=== PATIENT | female | born 1985 | race African-American/Black ===

== ENCOUNTER 2018-09-09 21:17 | Emergency (ER) | payer SELFPAY ==
[~2018-09-09] VITALS: Ht 172.7 cm; Wt 108.9 kg
[2018-09-09 22:32] VITALS: BP 111/62
[2018-09-09] MEDS ORDERED: CLON0.5T PO (22:43)
--- NOTE | 2018-09-09 22:46 | PHYS DOC ---
Adult General Chief Complaint Chief Complaint out of medicine HPI HPI 33 years old female presented to the emergency department with a chief complaint of dizziness stated when I feel anxious feeling dizzy I ran out of my Klonopin abdomen here for refill Review of Systems Review of Systems Constitutional: Denies fever or chills [] Eyes: Denies change in visual acuity, redness, or eye pain [] HENT: Denies nasal congestion or sore throat [] Respiratory: Denies cough or shortness of breath [] Cardiovascular: No additional information not addressed in HPI [] GI: Denies abdominal pain, nausea, vomiting, bloody stools or diarrhea [] : Denies dysuria or hematuria [] Musculoskeletal: Denies back pain or joint pain [] Integument: Denies rash or skin lesions [] Neurologic: Denies headache, focal weakness or sensory changes [] Endocrine: Denies polyuria or polydipsia [] All other systems were reviewed and found to be within normal limits, except as documented in this note. Allergies Allergies Allergies Coded Allergies Type Severity Reaction Last Updated Verified No Known Drug Allergies 11/29/13 No Physical Exam Physical Exam Constitutional: Well developed, well nourished, no acute distress, non-toxic appearance. [] HENT: Normocephalic, atraumatic, bilateral external ears normal, oropharynx moist, no oral exudates, nose normal. [] Eyes: PERRLA, EOMI, conjunctiva normal, no discharge. [] Neck: Normal range of motion, no tenderness, supple, no stridor. [] Cardiovascular:Heart rate regular rhythm, no murmur [] Lungs & Thorax: Bilateral breath sounds clear to auscultation [] Abdomen: Bowel sounds normal, soft, no tenderness, no masses, no pulsatile masses. [] Skin: Warm, dry, no erythema, no rash. [] Back: No tenderness, no CVA tenderness. [] Extremities: No tenderness, no cyanosis, no clubbing, ROM intact, no edema. [] Neurologic: Alert and oriented X 3, normal motor function, normal sensory function, no focal deficits noted. [] Psychologic: Affect normal, judgement normal, mood normal. [] Current Patient Data Vital Signs Vital Signs Date Time Temp Pulse Resp B/P (MAP) Pulse Ox O2 Delivery O2 Flow Rate FiO2 09/09/18 21:36 97.8 78 18 99 Room Air EKG EKG [] Radiology/Procedures Radiology/Procedures [] Course & Med Decision Making Course & Med Decision Making Pertinent Labs and Imaging studies reviewed. (See chart for details) [] Final Impression Final Impression [] Problems: (1) Anxiety Dragon Disclaimer Dragon Disclaimer This electronic medical record was generated, in whole or in part, using a voice recognition dictation system. PRANAY HERNANDEZ MD Sep 09, 2018 22:46
== END 2018-09-09 22:52 | disposition home or self-care (01) ==
LOC: ER 21:17
DX: F41.9 Anxiety disorder, unspecified (principal); R42 Dizziness and giddiness
CPT/HCPCS: 99283

== ENCOUNTER 2019-03-16 14:03 | Emergency (ER) | payer SELFPAY ==
[~2019-03-16] VITALS: Ht 172.7 cm; Wt 125.2 kg
[~2019-03-16 14:03] MED LIST: CLON0.5T PO
[2019-03-16] MEDS ORDERED: CYCL-331 PO (14:37)
--- NOTE | 2019-03-16 14:38 | PHYS DOC ---
Past History Past Medical History: Anxiety, Other Past Surgical History: No Surgical History Smoking: Cigarettes, Less than 1pk/day Alcohol Use: Occasionally Drug Use: Marijuana Social History Narrative: last used 3-4 weeks ago Adult General Chief Complaint Chief Complaint: BACK PAIN - NO INJURY HPI HPI patient is a 33-year-old female presents to the emergency department for evaluation of back pain, diffusely. She states she has been having pain on and off for quite a while, but denies any injuries. She denies any numbness, weakness, incontinence, or saddle anesthesia. Movement seems to worsen her pain. She states that she has been holding off going to an ER due to pain, because of her insurance issues, but she states that her pain has gradually worsened over the past week and a half. She has not had any injuries recently. Other than as stated above, there are no alleviating or exacerbating factors to her symptoms. Review of Systems Review of Systems Constitutional: Denies fever or chills [] Eyes: Denies change in visual acuity, redness, or eye pain [] HENT: Denies nasal congestion or sore throat [] Respiratory: Denies cough or shortness of breath [] Cardiovascular: The patient denies any shortness of breath, chest pain, palpitations, or orthopnea [] GI: Denies abdominal pain, nausea, vomiting, bloody stools or diarrhea [] : Denies dysuria or hematuria [] Musculoskeletal: Denies neck pain or joint pain [] Integument: Denies rash or skin lesions [] Neurologic: Denies headache, focal weakness or sensory changes [] Endocrine: Denies polyuria or polydipsia [] All other systems were reviewed and found to be within normal limits, except as documented in this note. Allergies Allergies Allergies Coded Allergies Type Severity Reaction Last Updated Verified No Known Drug Allergies 03/16/19 No Physical Exam Physical Exam PHYSICAL EXAM: CONSTITUTIONAL: Well developed, well nourished HEAD: normocephalic, atraumatic EENT: PERRL, EOMI. Conjunctivae normal color, sclerae non-icteric; moist mucous membranes. NECK: Supple, non-tender; no meningismus. LUNGS: Lungs CTA, breathing even and unlabored. Normal air movement. HEART: Regular rate and rhythm, no murmur CHEST: No deformity; non-tender ABDOMEN: The abdomen is soft, and non-tender, no masses or bruits. EXTREM: Normal ROM; no deformity, no calf tenderness. Normal pulses palpable in all extremities. There is no pedal edema. SKIN: No rash; no diaphoresis NEURO: Alert; normal speech and cognition; CN's grossly intact; strength grossly intact without focal deficit. BACK: No CVA TTP. There is tenderness to palpation diffusely of the paraspinal muscles of the thoracic and lumbar spine bilaterally, without any midline vertebral tenderness to palpation. Current Patient Data Vital Signs Vital Signs Date Time Temp Pulse Resp B/P (MAP) Pulse Ox O2 Delivery O2 Flow Rate FiO2 03/16/19 14:09 97.8 64 18 99 Room Air EKG EKG [] Radiology/Procedures Radiology/Procedures [] Course & Med Decision Making Course & Med Decision Making I discussed home care with the patient, the need for follow-up, and return precautions. Dragon Disclaimer Dragon Disclaimer This electronic medical record was generated, in whole or in part, using a voice recognition dictation system. Departure Departure: Impression: Primary Impression: Back pain Disposition: 01 HOME, SELF-CARE Condition: STABLE Patient Instructions: Back Pain, Adult Additional Instructions: Ibuprofen 400-600 mg every 6 hours may help improve your symptoms. Applying a heating pad to the affected area may help improve your symptoms. The prescribed medications may cause drowsiness-use caution while taking. Scripts Cyclobenzaprine Hcl (CYCLOBENZAPRINE HCL) 10 Mg Tablet 1 TAB PO TID PRN for back pain, #20 TAB Prov: JOEY FREEMAN MD 03/16/19 JOEY FREEMAN MD Mar 16, 2019 14:38
[2019-03-16 14:57] VITALS: BP 125/75
== END 2019-03-16 14:58 | disposition home or self-care (01) ==
LOC: ER 14:03
DX: M54.6 Pain in thoracic spine (principal); M54.5 Low back pain; F41.9 Anxiety disorder, unspecified; F17.210 Nicotine dependence, cigarettes, uncomplicated
CPT/HCPCS: 99283

== ENCOUNTER 2020-10-17 21:55 | Emergency (ER) | payer SELFPAY ==
[~2020-10-17] VITALS: Ht 172.7 cm; Wt 125.2 kg
[2020-10-17 21:55] VITALS: BP 134/75
[~2020-10-17 21:55] MED LIST changes: +CYCL-331 PO
== END 2020-10-17 22:21 | disposition left against medical advice (07) ==
LOC: ER 21:55
DX: S02.5XXA Fracture of tooth (traumatic), initial encounter for closed fracture (principal); Z53.21 Procedure and treatment not carried out due to patient leaving prior to being seen by health care provider; X58.XXXA Exposure to other specified factors, initial encounter; Y93.89 Activity, other specified; Y92.89 Other specified places as the place of occurrence of the external cause; Y99.8 Other external cause status

== ENCOUNTER 2021-05-31 10:20 | Emergency (ER) | payer SELFPAY ==
[~2021-05-31] VITALS: Ht 172.7 cm; Wt 125.2 kg
[~2021-05-31 10:20] MED LIST changes: -CYCL-331 PO; +CYCL10TA19 PO
[2021-05-31 11:14] VITALS: BP 128/59
--- NOTE | 2021-05-31 11:19 | PHYS DOC ---
Past History Past Medical History: Anxiety, Other Past Surgical History: No Surgical History Smoking: Cigarettes, Less than 1pk/day Alcohol Use: Occasionally Drug Use: Marijuana Adult General Chief Complaint Chief Complaint: LOWER EXT PAIN HPI HPI Patient is a 35-year-old female who presents with a chief complaint of left ankle pain after twisting it while walking her dog. States it is about 6 out of 10, dull and achy in nature. States she is able to walk because of discomfort. Did not take any medications. States that she did break her ankle a few years ago and since has been trying to get disability. States she is able to walk but it causes discomfort and request some crutches as she has an appointment today with her primary care physician and disability to discuss disability care. Review of Systems Review of Systems Review of systems otherwise unremarkable except noted in HPI Allergies Allergies Allergies Coded Allergies Type Severity Reaction Last Updated Verified No Known Drug Allergies 03/16/19 No Physical Exam Physical Exam Constitutional: Well developed, well nourished, no acute distress, non-toxic appearance. [] HENT: Normocephalic, atraumatic, Skin: Warm, dry, no erythema, no rash. [] Back: No tenderness, no CVA tenderness. [] Extremities: No tenderness, no cyanosis, no clubbing, ROM intact, no edema. [] Neurologic: Alert and oriented X 3, normal motor function, normal sensory function, no focal deficits noted. [] Psychologic: Affect normal, judgement normal, mood normal. [] EKG EKG [] Radiology/Procedures Radiology/Procedures [] Heart Score C/O Chest Pain: No Risk Factors: Risk Factors: DM, Current or recent (<one month) smoker, HTN, HLP, family hi story of CAD, obesity. Risk Scores: Risk Factors: DM, Current or recent (<one month) smoker, HTN, HLP, family history of CAD, obesity. Course & Med Decision Making Course & Med Decision Making Patient is a 35-year-old female who presents with left ankle pain Vital signs not concerning. Physical exam noted above. Given Tylenol, ibuprofen and ice pack. Given crutches. Given work note per patient's request. Imaging with no acute osseous abnormalities. Discussed symptom management at home. Advised to keep her appointment with primary care physician in the disability office today. Gave return precautions to the ED. Patient grateful, verbalized understanding and agreed with plan of discharge. Dragon Disclaimer Dragon Disclaimer This electronic medical record was generated, in whole or in part, using a voice recognition dictation system. Departure Departure: Impression: Primary Impression: Ankle pain Disposition: HOME / SELF CARE / HOMELESS Condition: GOOD Referrals: PCP,NO (PCP) CAMILA SIMON MD Patient Instructions: Crutch Use, RICE - Routine Care for Injuries Additional Instructions: Thank you for coming into the emergency department today and allowing us to take care of you. Please read the attached information carefully to go back over some of the things we discussed. You can use Tylenol, ibuprofen, ice and Benadryl as needed. Please follow-up with your primary care physician when you can to update on ED visit and set up a follow-up. Please come back to the ED with new or concerning symptoms as we discussed. LELIA TAYLOR MD May 31, 2021 11:19
[2021-05-31] MEDS ORDERED: IBUPROFEN 600 MG TABLET. PO ONE (13:00)
[2021-05-31] MEDS ORDERED: ACETAMINOPHEN 500 MG TABLET PO ONE (13:00)
--- NOTE | 2021-05-31 13:16 | RAD ---
XR EXAM OF ANKLE_LEFT 3V Clinical indications: Reason: fall /pain. Findings: No acute fracture or dislocation or osteolytic process is evident. The mortise ankle joint is intact. Prominent plantar spur of the calcaneus is seen. IMPRESSION: No acute osseous abnormality is evident. Electronically signed by: Anand Bae MD (05/31/2021 1:14 PM) [id number]
== END 2021-05-31 13:06 | disposition home or self-care (01) ==
LOC: ER 10:20
DX: M25.572 Pain in left ankle and joints of left foot (principal); F41.9 Anxiety disorder, unspecified; F17.210 Nicotine dependence, cigarettes, uncomplicated; X50.9XXA Other and unspecified overexertion or strenuous movements or postures, initial encounter; Y93.K1 Activity, walking an animal; Y92.89 Other specified places as the place of occurrence of the external cause; Y99.8 Other external cause status
CPT/HCPCS: 73610; 99283

== ENCOUNTER 2021-06-02 13:44 | Emergency (ER) | payer SELFPAY ==
[~2021-06-02] VITALS: Ht 172.7 cm; Wt 125.2 kg
[2021-06-02 13:50] VITALS: BP 139/80
[2021-06-02] MEDS ORDERED: ALPRAZolam 0.25 MG TABLET PO ONE (15:15)
--- NOTE | 2021-06-02 15:45 | PHYS DOC ---
Past History Past Medical History: Anxiety, Other (ILENE YORK APRN) Past Surgical History: No Surgical History (ILENE YORK APRN) Smoking: Cigarettes, Less than 1pk/day Alcohol Use: Rarely Drug Use: Marijuana (ILENE YORK APRN) General Adult EDM: Chief Complaint: ANXIETY/PANIC ATTACK HPI: HPI: Patient is a 35-year-old female who presents with panic attack. Patient states she has a history of anxiety and panic disorder. Patient's not currently taking any medications. Patient denies SI or HI. Patient states that she was at home getting ready to go to work when all of a sudden she started having a panic attack for an unknown reason. Patient is tearful and anxious. Patient states that she has [facility] in the past and recently made an appointment for next week. (ILENE YORK APRN) Review of Systems: Review of Systems: ROS At least 10 ROS systems have been reviewed and are negative except as documented in the HPI. General: Negative except as outlined in HPI above. Skin: Negative except as outlined in HPI above. HEENT: Negative except as outlined in HPI above. Neck: Negative except as outlined in HPI above. Respiratory: Negative except as outlined in HPI above.. Cardiovascular: Negative except as outlined in HPI above. Abdomen: Negative except as outlined in HPI above. : Negative except as outlined in HPI above. Back/MSK: Negative except as outlined in HPI above. Neuro: Negative except as outlined in HPI above. Psych: Negative except as outlined in HPI above. (ILENE YORK APRN) Current Medications: Current Meds: Current Medications Medications (Trade) Dose Ordered Sig/Arnulfo Start Time Stop Time Status Last Admin Dose Admin Alprazolam (Xanax) 0.5 mg 1X ONCE 06/02/21 15:15 06/02/21 15:16 DC (ILENE YORK APRN) Allergies: Allergies: Allergies Coded Allergies Type Severity Reaction Last Updated Verified No Known Drug Allergies 05/31/21 No (ILENE YORK APRN) Physical Exam: PE: Constitutional: Well developed, well nourished, no acute distress, non-toxic appearance. [] HENT: Normocephalic, atraumatic, bilateral external ears normal, oropharynx moist, no oral exudates, nose normal. [] Eyes: PERRLA, EOMI, conjunctiva normal, no discharge. [] Neck: Normal range of motion, no tenderness, supple, no stridor. [] Cardiovascular:Heart rate regular rhythm, no murmur [] Lungs & Thorax: Bilateral breath sounds clear to auscultation [] Abdomen: Bowel sounds normal, soft, no tenderness, no masses, no pulsatile masses. [] Skin: Warm, dry, no erythema, no rash. [] Back: No tenderness, no CVA tenderness. [] Extremities: No tenderness, no cyanosis, no clubbing, ROM intact, no edema. [] Neurologic: Alert and oriented X 3, normal motor function, normal sensory function, no focal deficits noted. [] Psychologic: Tearful and anxious mood (ILENE YORK APRN) Current Patient Data: Vital Signs: Vital Signs Date Time Temp Pulse Resp B/P (MAP) Pulse Ox O2 Delivery O2 Flow Rate FiO2 06/02/21 13:50 98.0 77 16 139/80 (99) 99 Room Air (ILENE YORK APRN) EKG: EKG: [] (ILENE YORK APRN) Radiology/Procedures: Radiology/Procedures: [] (ILENE YORK APRN) Heart Score: C/O Chest Pain: No Risk Factors: Risk Factors: DM, Current or recent (<one month) smoker, HTN, HLP, family history of CAD, obesity. Risk Scores: Score 0 - 3: 2.5% MACE over next 6 weeks - Discharge Home Score 4 - 6: 20.3% MACE over next 6 weeks - Admit for Clinical Observation Score 7 - 10: 72.7% MACE over next 6 weeks - Early Invasive Strategies (ILENE YORK APRN) Course & Med Decision Making: Course & Med Decision Making Pertinent Labs and Imaging studies reviewed. (See chart for details) [] 35-year-old female presents with panic attack. Patient has been on medication in the past for anxiety disorder but not currently taking anything at this time. Patient given 0.5 Xanax. Patient states that she has an appoint ment [facility] to [facility] medications. Advised patient to make sure she keeps her appointment for a follow-up. Discussed return precautions. Patient is hemodynamically stable upon disposition. (ILENE YORK APRN) Course & Med Decision Making I was the Attending physician on the above date of service of this patient. This patient was evaluated, examined, treated, and dispositioned from the emergency department by the mid-level practitioner. Although I was working at the time , no assistance was requested. Electronically signed, George Pinto DO (GEORGE PINTO DO) Basia Disclaimer: Basia Disclaimer: This electronic medical record was generated, in whole or in part, using a voice recognition dictation system. (ILENE YORK APRN) Departure Departure: Impression: Primary Impression: Anxiety Disposition: HOME / SELF CARE / HOMELESS Condition: STABLE Referrals: PCP,NO (PCP) Patient Instructions: Anxiety and Panic Attacks, [id number] Additional Instructions: You were seen in the emergency room for anxiety and panic attack. You were given Xanax to help with symptoms. Please keep your appointment you have scheduled with [facility] to restart your medications. Return to the emergency room with worsening symptoms or concerns. EMERGENCY DEPARTMENT GENERAL DISCHARGE INSTRUCTIONS Thank you for coming to [facility] (ED) today and trusting us with you care. We trust that you had a positivie experience in our Emergency Department. If you wish to speak to the department management, you may call the director at [phone]. YOUR FOLLOW UP INSTRUCTIONS ARE FOLLOWS: 1. Do you have a private Doctor? If you do not have a private doctor, please ask for a resource list of physicians or clinics that may be able to assist you with follow up care. 2. The Emergency Physician has interpreted your x-rays. The X-Ray specialist will also review them. If there is a change in the findings, you will be notified in 48 hours when at all possible. 3. A lab test or culture has been done, your results will be reviewed and you will be notified if you need a change in treatment. ADDITIONAL INSTRUCTIONS AND INFORMATION: 1. Your care today has been supervised by a physician who is specially trained in emergency care. Many problems require more than one evaluation for a complete diagnosis and treatment. We recommend that you schedule your follow up appointment as recommended to ensure complete treatment of you illness or injury. If you are unable to obtain follow up care and continue to have a problem, or if your condition worsens, we recommend that you return to the ED. 2. We are not able to safely determine your condition over the phone nor are we able to give sound medical advice over the phone. For these safety reasons, if you call for medical advice we will ask you to come to the ED for further evaluation. 3. If you have any questions regarding these discharge instructions please call the ED at [phone]. SAFETY INFORMATION: In the interest of safety, wellness, and injury prevention; we encourage you to wear your sealbelt, if you smoke; quite smoking, and we encourage family to use a protective helmet for bicycling and other sporting events that present an increased risk for head injury. IF YOUR SYMPTOMS WORSEN OR NEW SYMPTOMS DEVELOP, OR YOU HAVE CONCERNS ABOUT YOUR CONDITION; OR IF YOUR CONDITION WORSENS WHILE YOU ARE WAITING FOR YOUR FOLLOW UP APPOINTMENT; EITHER CONTACT YOUR PRIMARY CARE DOCTOR, THE PHYSICIAN WHOSE NAME AND NUMBER YOU WERE GIVEN, OR RETURN TO THE ED IMMEDIATELY. ILENE YORK APRN Jun 02, 2021 15:45 GEORGE PINTO DO Jun 06, 2021 00:31
== END 2021-06-02 15:55 | disposition home or self-care (01) ==
LOC: ER 13:44
DX: F41.9 Anxiety disorder, unspecified (principal); F17.210 Nicotine dependence, cigarettes, uncomplicated
CPT/HCPCS: 99281

== ENCOUNTER 2021-08-27 21:32 | Emergency (ER) | payer SELFPAY ==
[~2021-08-27] VITALS: Ht 172.7 cm; Wt 110.2 kg
[2021-08-27] MEDS ORDERED: DEXAMETHASONE 4 MG TABLET PO ONE (22:15)
[2021-08-27] MEDS ORDERED: AMOXICILLIN/K CLAV 875/125MG TABLET. PO ONE (22:15)
[2021-08-27] MEDS ORDERED: BUPIVACAINE MPF 0.5% 30 ML VIAL. IJ ONE (22:30)
--- NOTE | 2021-08-27 22:30 | PHYS DOC ---
Past History Past Medical History: Anxiety, Other Past Surgical History: No Surgical History Smoking: Cigarettes, Less than 1pk/day Alcohol Use: Occasionally Drug Use: Marijuana General Adult EDM: Chief Complaint: DENTAL PROBLEM HPI: HPI: 36-year-old female presenting to [facility] ED for right-sided tooth and jaw pain for the past 2 days. Reports that she had her one of her right teeth chipped off 3 months ago. She did not go to the dentist for it. Her pain then was a 3 out of 10 and was taking care with Orajel. Pain started 2 days ago is described as throbbing and intermittently stabbing pain that is a 6 out of 10. Currently an 8 out of 10. Cold air chewing, drinking, talking make the pain worse. She has tried 2 tubes of Orajel today and has tried one 800 mg of ibuprofen and 2 regular strength Aleve, which have not helped. Pain is radiating along R inferior jawline and back to the right inferior ear. She last ate 8 hours ago, but not limited to the last day. She also reports nausea. There are no other associated symptoms. Review of Systems: Review of Systems: Constitutional: Denies fever or chills Eyes: Denies redness or eye pain HENT: Reports R sided mouth pain. Denies nasal congestion. Respiratory: Denies cough or shortness of breath Cardiovascular: Denies chest pain or palpitations GI: Denies abdominal pain, nausea, or vomiting : Denies dysuria or hematuria Musculoskeletal: Denies back pain or joint pain Integument: Denies rash or skin lesions Neurologic: Denies headache, focal weakness or sensory changes Complete systems were reviewed and found to be within normal limits, except as documented in this note. Current Medications: Current Meds: Current Medications Medications (Trade) Dose Ordered Sig/Arnulfo Start Time Stop Time Status Last Admin Dose Admin Amoxicillin/ Clavulanate Potassium (Augmentin 875/ 125mg) 1 tab 1X ONCE 08/27/21 22:15 08/27/21 22:16 UNV Bupivacaine HCl (Sensorcaine Mpf 0.5%) 10 ml 1X ONCE 08/27/21 22:15 08/27/21 22:16 UNV Dexamethasone (Decadron) 10 mg 1X ONCE 08/27/21 22:15 08/27/21 22:16 UNV Allergies: Allergies: Allergies Coded Allergies Type Severity Reaction Last Updated Verified No Known Drug Allergies 05/31/21 No Physical Exam: PE: Constitutional: morbidly obese, Well developed, well nourished, moderate acute distress, non-toxic appearance HENT: Normocephalic, atraumatic, poor dentition. Multiple caries noted. Right mandibular 2nd molar and 3rd molar severely decayed. 2nd molar right mandible chipped. Edema is noted right bucca mucosa. Small white edematous mass palpated and tender to palpation. Multiple teeth have been pulled and are not present. Oropharynx normal. Tympanic membranes pearly, nondistended, sharp cone of light. Partial cerumen impaction of the right external auditory meatus. Eyes: PERRL, EOMI, conjunctiva normal, no discharge Neck: Normal range of motion, tender to palpation on R side, hypertonic R SCM. supple Lungs & Thorax: No respiratory distress, equal chest rise and fall, CTAB Cardiovascular: RRR w/o murmur; +2/4 pulses b/l UE/LE; 1-2 seconds capillary refill UE b/l Skin: Warm, dry, no erythema, no rash, bruising noted on R forearm Neurologic: Alert and oriented X 3, no focal deficits noted Psychologic: Affect normal, judgment normal Current Patient Data: Vital Signs: Vital Signs Date Time Temp Pulse Resp B/P (MAP) Pulse Ox O2 Delivery O2 Flow Rate FiO2 08/27/21 21:36 97.9 64 18 139/80 (99) 99 Room Air Heart Score: C/O Chest Pain: N/A Course & Med Decision Making: Course & Med Decision Making 36-year-old female presents to [facility] ED for right tooth and jaw pain that started 2 days ago and has been steadily worsening. She denies any fevers/ chills. She endorses some headache. She had a chipped right mandibular second and third molar roughly 3 months ago. Physical exam shows bogginess of the inferior right mandible and severe tenderness to light palpation from anterior right mandible to inferior right ear. There is a small palpable mass in the right buccal mucosa. Patient does not have given a new height trachea anterior posterior cervical lymphadenopathy. Past surgical history is remarkable for pulled tooth on her left side of her mo uth 1 and half years ago. Based on history and physical patient most likely has small abscess of the right buccal mucosa. Patient was given 1 tablet of Augmentin for oral infection and 10 mg of Decadron for pain and inflammation. Right inferior alveolar nerve dental block was performed with 0.5% bupivacaine without epinephrine for pain and anesthesia for Incision and drainage. Incision and drainage of possible right buccal mucosa abscess was attempted but nothing was aspirated. Patient swished and spit with ice water. Discharge plans provided to patient to take over the counter ibuprofen and Tylenol as needed for pain. Patient also prescribed hydrocodone/acetaminophen 5-325 mg instructed to take 0.5 to 1 tablet as needed every 6 hours for breakthrough pain not controlled with ibuprofen and Tylenol. Patient also prescribed Augmentin to take for 7 days twice daily. Patient instructed to rinse mouth with chlorhexidine. Patient instructed to follow-up with a dentist. Patient stable for discharge with outpatient follow-up with PCP/dentist. Discussed findings and plan with patient, who acknowledges understanding and agreement. Basia Disclaimer: Basia Disclaimer: This electronic medical record was generated, in whole or in part, using a voice recognition dictation system. Additional Procedures Progress Right inferior alveolar nerve dental block and I&D of dental abscess Verbal consent obtained. Time out performed. Hand hygiene utilized. Anesthesia obtained via a 27-gauge hypodermic needle with 6 mL's of bupivacaine 0.5% without epinephrine. Needle aspiration performed with 18 gauge needle and large Q-tips with no significant purulent discharge expressed. Patient swished mouth a nd spit with 8oz of ice water. Patient tolerated procedure well and without difficulty. Departure Departure: Impression: Primary Impression: Dental abscess Additional Impressions: Dental caries Dentalgia Disposition: 01 HOME / SELF CARE / HOMELESS Condition: STABLE Referrals: PCP,DIOMEDES (PCP) Patient Instructions: Dental Abscess, Dental Caries, Toothache-Brief Additional Instructions: Use [id number] ibuprofen as needed for pain or discomfort. Take antibiotics to completion. Scripts Hydrocodone Bit/Acetaminophen (HYDROCODONE-APAP 5-325 ) 1 Each Tablet 0.5-1 TAB PO PRN Q6HRS PRN for PAIN, #10 TAB 0 Refills Prov: MARIZA PICKETT DO 08/27/21 Chlorhexidine Gluconate (PERIDEX) 15 Ml Mouthwash 15 ML PO BID for dental infection, #473 ML 0 Refills Prov: MARIZA PICKETT DO 08/27/21 Amoxicillin/Potassium Clav (AUGMENTIN 875-125 TABLET) 1 Each Tablet 1 TAB PO BID for dental infection for 7 Days, #14 TAB 0 Refills Prov: MARIZA PICKETT DO 08/27/21 MARIZA PICKETT DO Aug 27, 2021 22:30
[2021-08-27] MEDS ORDERED: HYDR-2155 PO (22:35)
[2021-08-27] MEDS ORDERED: CHLO15MO2 PO (22:35)
[2021-08-27] MEDS ORDERED: AMOX1TAB61 PO (22:35)
[2021-08-27 23:20] VITALS: BP 128/70
== END 2021-08-27 23:25 | disposition home or self-care (01) ==
LOC: ER 21:32
DX: K04.7 Periapical abscess without sinus (principal); K02.9 Dental caries, unspecified; F17.210 Nicotine dependence, cigarettes, uncomplicated
CPT/HCPCS: 10160; 99284; J3490; J8540